=== PATIENT | female | born 1955 | race Caucasian/White ===

== ENCOUNTER → 2017-09-25 | Outpatient (CLI) | payer OTHER ==
[~2017-09-25] MED LIST: ASCORBIC ACID500 M3 PO; ASPIRIN EC325 MG PO; INCRUSE ELLI62.5 MCG IH; LOPRESSOR50 MG PO; METOPROLOL TART50 MG PO; MIRTAZAPINE15 MG PO; MULTIVITAMIN1 EAC2 PO; PHENOBARBITAL32.4 MG PO; PRINIVIL10 MG PO; SIMVASTATIN20 M1 PO; SPIRIVA18 MCG PO; SYMBICORT60 INHALAT IH; VENTOLIN HFA18 GM IH; VITAMIN C PO; VITAMIN D22000 UNIT PO; VITAMIN D31000 UNI2 PO; VITAMIN E400 UNIT PO; VITAMIN-E400 INTUNI PO; ZESTRIL,PRINIVI10 MG PO; ZOCOR20 MG PO
== END | disposition home or self-care (01) ==
LOC: OPR 07:45 → EDSTATUS 08:00 → OPR 08:00
PROC: 0BBF3ZX Excision of Right Lower Lung Lobe, Percutaneous Approach, Diagnostic (ICD-10-PCS; principal; 2017-09-25)
DX: C34.31 Malignant neoplasm of lower lobe, right bronchus or lung (principal); Z85.3 Personal history of malignant neoplasm of breast; Z92.21 Personal history of antineoplastic chemotherapy; F17.200 Nicotine dependence, unspecified, uncomplicated; J44.9 Chronic obstructive pulmonary disease, unspecified; E55.9 Vitamin D deficiency, unspecified; G40.909 Epilepsy, unspecified, not intractable, without status epilepticus; Z79.82 Long term (current) use of aspirin
CPT/HCPCS: 71045; 77012; 88305; 88341 TC; 88342 TC

== ENCOUNTER 2017-11-01 11:23 | Day surgery (SDC) | payer OTHER ==
[~2017-11-01] VITALS: Ht 152.4 cm; Wt 74.8 kg
[2017-11-01 12:04] LABS: ALBUMIN 4.4 g/dL (3.2-4.8); CHLORIDE 100 mEq/L (99-109); POTASSIUM 4.9 mEq/L (3.7-5.4); SODIUM 139 mEq/L (136-147)
[2017-11-01 12:06] LABS: GLUCOSE 109 mg/dL (70-99); PTT 28.2 SEC (25-37)
[2017-11-01 12:08] LABS: TOTAL BILIRUBIN 0.4 mg/dL (0.0-1.0)
[2017-11-01 12:10] LABS: ALKALINE PHOSPHATASE 83 IU/L (3-129); CREATININE 0.8 mg/dL (0.6-1.3); GFR ESTIMATE (CALCULATED) > 59 mL/min/
[2017-11-01 12:11] LABS: UREA NITROGEN (BUN) 13 mg/dL (9-23)
[2017-11-01 12:12] LABS: AST (GOT) 20 IU/L (2-34)
[2017-11-01 12:13] LABS: ALT (GPT) 16 IU/L (3-49)
[2017-11-01 12:18] VITALS: BP 122/64
[2017-11-01] MEDS ORDERED: MOTRIN600 MG PO (19:15)
[2017-11-01 20:05] VITALS: BP 165/74
[2017-11-01 20:38] VITALS: BP 147/67
== END 2017-11-01 20:40 | disposition home or self-care (01) ==
LOC: SDC 11:23
PROVIDERS: Thoracic Surgery (Cardiothoracic Vascular Surgery)
PROC: 07B74ZX Excision of Thorax Lymphatic, Percutaneous Endoscopic Approach, Diagnostic (ICD-10-PCS; principal; 2017-11-01)
DX: C34.31 Malignant neoplasm of lower lobe, right bronchus or lung (principal); Z85.3 Personal history of malignant neoplasm of breast; I10 Essential (primary) hypertension; J43.9 Emphysema, unspecified; Z86.73 Personal history of transient ischemic attack (TIA), and cerebral infarction without residual deficits; R56.9 Unspecified convulsions; I25.2 Old myocardial infarction; Z92.21 Personal history of antineoplastic chemotherapy; Z90.13 Acquired absence of bilateral breasts and nipples; Z88.0 Allergy status to penicillin; Z88.8 Allergy status to other drugs, medicaments and biological substances; Z88.1 Allergy status to other antibiotic agents; Z80.8 Family history of malignant neoplasm of other organs or systems; Z82.3 Family history of stroke; Z80.1 Family history of malignant neoplasm of trachea, bronchus and lung; Z82.49 Family history of ischemic heart disease and other diseases of the circulatory system; Z83.3 Family history of diabetes mellitus
CPT/HCPCS: 80053; 85610; 85730; 86850; 86900; 86901; 88305; J0690; J1100; J1170; J2250; J2405; J2710; J3010; J7643

== ENCOUNTER 2017-11-21 19:49 | Inpatient (IN) | payer OTHER ==
[~2017-11-21] VITALS: Ht 152.4 cm; Wt 75.4 kg
[~2017-11-21 19:49] MED LIST changes: +MOTRIN600 MG PO
[2017-11-22 09:13] LABS: PTT 27.6 SEC (25-37)
[2017-11-22 09:26] VITALS: BP 121/61
[2017-11-22 16:00] VITALS: BP 143/60; BP 146/66
[2017-11-22 18:00] VITALS: BP 146/66
[2017-11-22 22:00] VITALS: BP 133/66
[2017-11-23] VITALS (19 sets, daily range): BP systolic 112–165; BP diastolic 49–146
[2017-11-23 07:00] LABS: HEMATOCRIT 35.3 % (36.0-46.0); HEMOGLOBIN 11.8 G/DL (11.9-15.5); MCH 32.2 PG (29.0-34.0); MCHC 33.4 G/DL (30.0-36.0); MCV 96.4 FL (83-99); PLATELET COUNT 277 K/uL (156-360); RBC DIS.WIDTH-CV 12.8 % (11.8-14.6); RED BLOOD COUNT 3.66 M/uL (3.80-5.20); WHITE BLOOD COUNT 17.4 K/uL (4.1-10.2)
[2017-11-23 07:25] LABS: CHLORIDE 102 MEQ/L (99-109); CREATININE 0.7 MG/DL (0.6-1.3); GFR ESTIMATE (CALCULATED) > 59 mL/min/; GLUCOSE 112 mg/dL (70-99); POTASSIUM 4.5 MEQ/L (3.7-5.4); SODIUM 131 MEQ/L (136-147); UREA NITROGEN (BUN) 15 mg/dL (9-23)
[2017-11-24] VITALS (24 sets, daily range): BP systolic 106–164; BP diastolic 44–99
[2017-11-24 05:50] LABS: HEMOGLOBIN 11.8 G/DL (11.9-15.5); MCH 32.4 PG (29.0-34.0); MCHC 33.7 G/DL (30.0-36.0); MCV 96.2 FL (83-99); PLATELET COUNT 314 K/uL (156-360); RBC DIS.WIDTH-CV 12.8 % (11.8-14.6); RBC DIS.WIDTH-SD 45.2 % (39-53); RED BLOOD COUNT 3.64 M/uL (3.80-5.20); WHITE BLOOD COUNT 13.5 K/uL (4.1-10.2)
[2017-11-24 06:14] LABS: CHLORIDE 103 MEQ/L (99-109); CREATININE 0.4 MG/DL (0.6-1.3); GFR ESTIMATE (CALCULATED) > 59 mL/min/; GLUCOSE 121 mg/dL (70-99); POTASSIUM 4.8 MEQ/L (3.7-5.4); SODIUM 137 MEQ/L (136-147); UREA NITROGEN (BUN) 8 mg/dL (9-23)
[2017-11-25] VITALS (15 sets, daily range): BP systolic 101–167; BP diastolic 53–107
[2017-11-25 06:10] LABS: HEMATOCRIT 34.5 % (36.0-46.0); HEMOGLOBIN 11.3 G/DL (11.9-15.5); MCH 31.7 PG (29.0-34.0); MCHC 32.8 G/DL (30.0-36.0); MCV 96.6 FL (83-99); PLATELET COUNT 295 K/uL (156-360); RBC DIS.WIDTH-CV 12.8 % (11.8-14.6); RBC DIS.WIDTH-SD 45.2 % (39-53); RED BLOOD COUNT 3.57 M/uL (3.80-5.20); WHITE BLOOD COUNT 11.9 K/uL (4.1-10.2)
[2017-11-25 06:40] LABS: CHLORIDE 102 MEQ/L (99-109); CREATININE 0.5 MG/DL (0.6-1.3); GFR ESTIMATE (CALCULATED) > 59 mL/min/; GLUCOSE 119 mg/dL (70-99); POTASSIUM 4.5 MEQ/L (3.7-5.4); SODIUM 138 MEQ/L (136-147); UREA NITROGEN (BUN) 9 mg/dL (9-23)
[2017-11-26] VITALS (19 sets, daily range): BP systolic 111–148; BP diastolic 43–96
[2017-11-26 05:30] LABS: HEMATOCRIT 33.9 % (36.0-46.0); HEMOGLOBIN 11.3 G/DL (11.9-15.5); MCH 32.4 PG (29.0-34.0); MCHC 33.3 G/DL (30.0-36.0); MCV 97.1 FL (83-99); PLATELET COUNT 318 K/uL (156-360); RBC DIS.WIDTH-CV 12.9 % (11.8-14.6); RBC DIS.WIDTH-SD 45.6 % (39-53); RED BLOOD COUNT 3.49 M/uL (3.80-5.20); WHITE BLOOD COUNT 12.9 K/uL (4.1-10.2)
[2017-11-27] VITALS (8 sets, daily range): BP systolic 109–162; BP diastolic 60–90
[2017-11-28 00:02] VITALS: BP 136/93
[2017-11-28 03:49] VITALS: BP 147/67
[2017-11-28 09:00] VITALS: BP 145/67
[2017-11-28 13:30] VITALS: BP 118/55
[2017-11-28 17:41] VITALS: BP 132/66
[2017-11-28 20:32] VITALS: BP 129/61
[2017-11-29 00:20] VITALS: BP 135/69
[2017-11-29 04:53] VITALS: BP 120/61
[2017-11-29 08:00] VITALS: BP 147/68
[2017-11-29 11:24] VITALS: BP 112/64
[2017-11-29 20:15] VITALS: BP 140/76
[2017-11-29 23:15] VITALS: BP 142/65
[2017-11-30 03:41] VITALS: BP 138/64
[2017-11-30 07:45] VITALS: BP 115/64
[2017-11-30] MEDS ORDERED: DULERA 100 MCG/13 GM IH (10:17)
[2017-11-30] MEDS ORDERED: MOTRIN600 MG PO (10:17)
[2017-11-30] MEDS ORDERED: HYDROCODON-ACE1 EAC7 PO (10:17)
[2017-11-30] MEDS ORDERED: HEPARIN SO5000 UNIT4 SC (10:17)
[2017-11-30] MEDS ORDERED: DIGOXIN125 MCG PO (10:17)
[2017-11-30] MEDS ORDERED: DOCUSATE SODIU100 MG PO (10:17)
== END 2017-11-30 11:34 | DRG 164 ==
LOC: ENRESERV 19:49 → 2SOUTH 11-22 08:29 → 4WEST 11-22 08:29 → 4EAST 11-22 08:29 → 2SOUTH 11-22 10:26 → ENRESERV 11-22 15:41 → 4WEST 11-22 16:02 → ENRESERV 11-27 00:12 → 4EAST 11-27 01:27
PROVIDERS: Surgery; Thoracic Surgery (Cardiothoracic Vascular Surgery)
PROC: 0BTF0ZZ Resection of Right Lower Lung Lobe, Open Approach (ICD-10-PCS; principal; 2017-11-22)
DX: C34.31 Malignant neoplasm of lower lobe, right bronchus or lung (principal); J93.83 Other pneumothorax; J44.9 Chronic obstructive pulmonary disease, unspecified; I10 Essential (primary) hypertension; J94.1 Fibrothorax; K59.00 Constipation, unspecified; I83.90 Asymptomatic varicose veins of unspecified lower extremity; J93.82 Other air leak; R56.9 Unspecified convulsions; J98.11 Atelectasis; Y84.2 Radiological procedure and radiotherapy as the cause of abnormal reaction of the patient, or of later complication, without mention of misadventure at the time of the procedure; Z85.3 Personal history of malignant neoplasm of breast; Z86.73 Personal history of transient ischemic attack (TIA), and cerebral infarction without residual deficits; Z87.891 Personal history of nicotine dependence; Z90.13 Acquired absence of bilateral breasts and nipples; Z80.1 Family history of malignant neoplasm of trachea, bronchus and lung; Z80.8 Family history of malignant neoplasm of other organs or systems; Z82.3 Family history of stroke; Z82.49 Family history of ischemic heart disease and other diseases of the circulatory system; Z83.3 Family history of diabetes mellitus; I25.2 Old myocardial infarction; Z92.21 Personal history of antineoplastic chemotherapy; Z92.3 Personal history of irradiation
CPT/HCPCS: 71045; 71046; 80048; 80185; 85027; 85610; 85730; 86850; 86900; 86901; 86920; 87641; 88309; 88313; 94640; 94669; 94760; 94799; 97530 GO; 97530 GP; J0131; J0690; J1100; J1160; J1644; J1885; J2250; J2405; J2710; J3010; J7050; J7120; J7643; S0020

== ENCOUNTER 2017-11-30 09:30 | Inpatient (IN) | payer OTHER ==
[~2017-11-30] VITALS: Ht 152.4 cm; Wt 78.4 kg
[2017-11-30] MEDS ORDERED: HEPARIN SO5000 UNIT4 SC (10:17)
[2017-11-30] MEDS ORDERED: MOTRIN600 MG PO (10:17)
[2017-11-30] MEDS ORDERED: HYDROCODON-ACE1 EAC7 PO (10:17)
[2017-11-30] MEDS ORDERED: DULERA 100 MCG/13 GM IH (10:17)
[2017-11-30] MEDS ORDERED: DOCUSATE SODIU100 MG PO (10:17)
[2017-11-30] MEDS ORDERED: DIGOXIN125 MCG PO (10:17)
[2017-11-30 11:32] VITALS: BP 134/60
[2017-11-30 16:26] VITALS: BP 129/61
[2017-12-01 00:14] VITALS: BP 108/58
[2017-12-01 04:23] VITALS: BP 144/64
[2017-12-01 06:15] LABS: HEMATOCRIT 34.7 % (36.0-46.0); HEMOGLOBIN 11.4 G/DL (11.9-15.5); MCH 31.7 PG (29.0-34.0); MCHC 32.9 G/DL (30.0-36.0); MCV 96.4 FL (83-99); RBC DIS.WIDTH-CV 12.9 % (11.8-14.6); RBC DIS.WIDTH-SD 45.4 % (39-53); WHITE BLOOD COUNT 11.4 K/uL (4.1-10.2)
[2017-12-01 06:30] LABS: PLATELET COUNT 440 K/uL (156-360)
[2017-12-01 06:41] LABS: ALBUMIN 3.4 G/DL (3.2-4.8); ALKALINE PHOSPHATASE 65 IU/L (3-129); ALT (GPT) 39 IU/L (3-49); AST (GOT) 24 IU/L (2-34); CHLORIDE 97 MEQ/L (99-109); CREATININE 0.7 MG/DL (0.6-1.3); GFR ESTIMATE (CALCULATED) > 59 mL/min/; GLUCOSE 119 mg/dL (70-99); POTASSIUM 5.1 MEQ/L (3.7-5.4); SODIUM 136 MEQ/L (136-147); TOTAL BILIRUBIN 0.3 MG/DL (0.0-1.0); TOTAL PROTEIN 6.6 G/DL (6.4-8.3)
[2017-12-01 06:45] LABS: UREA NITROGEN (BUN) 21 mg/dL (9-23)
[2017-12-01 15:20] VITALS: BP 124/58
[2017-12-02 03:56] VITALS: BP 119/71
[2017-12-02 15:19] VITALS: BP 127/60
[2017-12-03 06:24] VITALS: BP 111/74
[2017-12-03 07:13] LABS: BASOPHIL (%) 0.5 % (0-1); BASOPHIL COUNT 0.1 K/uL (0-0.1); EOSINOPHIL (%) 2.6 % (0-5); EOSINOPHIL COUNT 0.3 K/uL (0-0.3); HEMATOCRIT 35.5 % (36.0-46.0); HEMOGLOBIN 11.8 G/DL (11.9-15.5); IMMATURE GRANULOCYTE (%) 2.3 % (0.0-0.7); LYMPHOCYTE (%) 18.9 % (15-42); LYMPHOCYTE COUNT 2.4 K/uL (1.0-2.8); MCH 31.7 PG (29.0-34.0); MCHC 33.2 G/DL (30.0-36.0); MCV 95.4 FL (83-99); MONOCYTE (%) 9.6 % (3-12); MONOCYTE COUNT 1.2 K/uL (0-0.8); NEUTROPHIL (%) 66.1 % (45-76); NEUTROPHIL COUNT 8.2 K/uL (1.8-6.4); PLATELET COUNT 465 K/uL (156-360); RBC DIS.WIDTH-CV 12.7 % (11.8-14.6); RBC DIS.WIDTH-SD 44.1 % (39-53); RED BLOOD COUNT 3.72 M/uL (3.80-5.20); WHITE BLOOD COUNT 12.4 K/uL (4.1-10.2)
[2017-12-03 07:34] LABS: CHLORIDE 93 MEQ/L (99-109); CREATININE 0.6 MG/DL (0.6-1.3); GFR ESTIMATE (CALCULATED) > 59 mL/min/; GLUCOSE 109 mg/dL (70-99); POTASSIUM 5.2 MEQ/L (3.7-5.4); SODIUM 130 MEQ/L (136-147); UREA NITROGEN (BUN) 21 mg/dL (9-23)
[2017-12-03 15:57] VITALS: BP 126/58
[2017-12-03] MEDS ORDERED: DULERA 100 MCG/13 GM IH (20:02)
[2017-12-03] MEDS ORDERED: VITAMIN D22000 UNIT PO (20:02)
[2017-12-03] MEDS ORDERED: VENTOLIN HFA18 GM IH (20:02)
[2017-12-03] MEDS ORDERED: SPIRIVA18 MCG PO (20:02)
[2017-12-03] MEDS ORDERED: DIGOXIN125 MCG PO (20:02)
[2017-12-04 05:18] VITALS: BP 110/54
== END 2017-12-04 16:26 | disposition home health service (06) | DRG 949 ==
LOC: 3WEST 09:30
PROVIDERS: Family Medicine Sports Medicine; Physical Medicine & Rehabilitation Pain Medicine
PROC: F07 Physical Rehabilitation and Diagnostic Audiology, Rehabilitation, Motor Treatment (ICD-10-PCS; principal; 2017-11-30)
DX: Z48.3 Aftercare following surgery for neoplasm (principal); R53.1 Weakness; J44.9 Chronic obstructive pulmonary disease, unspecified; J69.0 Pneumonitis due to inhalation of food and vomit; E87.1 Hypo-osmolality and hyponatremia; D62 Acute posthemorrhagic anemia; E83.52 Hypercalcemia; G89.18 Other acute postprocedural pain; F17.210 Nicotine dependence, cigarettes, uncomplicated; E83.51 Hypocalcemia; I10 Essential (primary) hypertension; I83.90 Asymptomatic varicose veins of unspecified lower extremity; J93.83 Other pneumothorax; E78.5 Hyperlipidemia, unspecified; I42.7 Cardiomyopathy due to drug and external agent; T45.1X5A Adverse effect of antineoplastic and immunosuppressive drugs, initial encounter; M19.90 Unspecified osteoarthritis, unspecified site; R56.9 Unspecified convulsions; Z90.13 Acquired absence of bilateral breasts and nipples; Z85.118 Personal history of other malignant neoplasm of bronchus and lung; Z83.3 Family history of diabetes mellitus; Z90.2 Acquired absence of lung [part of]; Z85.3 Personal history of malignant neoplasm of breast; Z82.49 Family history of ischemic heart disease and other diseases of the circulatory system; Z80.8 Family history of malignant neoplasm of other organs or systems; I69.398 Other sequelae of cerebral infarction; Z80.1 Family history of malignant neoplasm of trachea, bronchus and lung
CPT/HCPCS: 80048; 80053; 85025; 85027; 97530 GP; J1644